=== PATIENT | male | born 1975 | race Caucasian/White ===

== ENCOUNTER 2016-12-24 13:53 | Emergency (ER) | payer BC ==
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
--- NOTE | 2016-12-24 19:19 | ED MAR SUMMARY ---
..... Medication Administration Record [facility] [address], [place] [id number] Patient: DANA STEELE Visit ID: [id number] 41y, M Weight: 111.1 kg Height/Length: 76 in BMI: 29.8 ALLERGIES: No Known Drug Allergy
--- NOTE | 2016-12-24 19:19 | ED MED RECONCILIATION SUMMARY ---
Patient: DANA STEELE Medication Reconciliation Report [facility] VisitID: [id number] [address] [place] [address] 41y, M Registration Date/Time: 12/24/2016 Weight: 111.1 kg Height/Length: 76 in. BMI: 29.8 ALLERGIES: No Known Drug Allergy The patient's Home Medications are listed below: THE FOLLOWING MEDICATIONS NEED TO BE RECONCILED: Digoxin Oral 1/2 tab in am Furosemide Oral 20 mg, daily Lipitor Oral 10 mg, 2x a day Metoprolol Tartrate Oral 50 mg, BID Spironolactone Oral 25 mg, daily Uses [facility] [place] The source(s) of the original Home Medication information: Not obtained. The following Medications were given to the patient in the Emergency Department: None. The following Medications were prescribed to the patient: Flexeril 10 mg: Take 1 orally every 8 hours as needed for muscle spasm. Dispense twenty (20). No refills. Substitution is permissible. -- Asuncion Alberts A.RHugoNHugoP. Ultram 50 mg tablets: take 1-2 orally every 6 hours as needed for pain. Dispense twenty (20). No refills. Substitution is permissible. -- Asuncion Alberts A.R.N.P.
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
--- NOTE | 2016-12-24 19:19 | ED MAR SUMMARY ---
..... Medication Administration Record [facility] [address] [place], [place] [id number] Patient: DANA STEELE Visit ID: [id number] 41y, M Weight: 111.1 kg Height/Length: 76 in BMI: 29.8 ALLERGIES: No Known Drug Allergy
--- NOTE | 2016-12-24 19:19 | ED MED RECONCILIATION SUMMARY ---
Patient: DANA STEELE Medication Reconciliation Report [facility] VisitID: [id number] [address] [place] [address] 41y, M Registration Date/Time: 12/24/2016 Weight: 111.1 kg Height/Length: 76 in. BMI: 29.8 ALLERGIES: No Known Drug Allergy The patient's Home Medications are listed below: THE FOLLOWING MEDICATIONS NEED TO BE RECONCILED: Digoxin Oral 1/2 tab in am Furosemide Oral 20 mg, daily Lipitor Oral 10 mg, 2x a day Metoprolol Tartrate Oral 50 mg, BID Spironolactone Oral 25 mg, daily Uses [facility] [place] The source(s) of the original Home Medication information: Not obtained. The following Medications were given to the patient in the Emergency Department: None. The following Medications were prescribed to the patient: Flexeril 10 mg: Take 1 orally every 8 hours as needed for muscle spasm. Dispense twenty (20). No refills. Substitution is permissible. -- Asuncion Alberts A.RHugoNHugoP. Ultram 50 mg tablets: take 1-2 orally every 6 hours as needed for pain. Dispense twenty (20). No refills. Substitution is permissible. -- Asuncion Alberts A.R.N.P.
== END 2016-12-24 16:05 | disposition home or self-care (01) ==
LOC: ED SRH 13:53
DX: S16.1XXA Strain of muscle, fascia and tendon at neck level, initial encounter (principal); S39.012A Strain of muscle, fascia and tendon of lower back, initial encounter; V53.5XXA Driver of pick-up truck or van injured in collision with car, pick-up truck or van in traffic accident, initial encounter; Y99.9 Unspecified external cause status; Y92.9 Unspecified place or not applicable; Y93.89 Activity, other specified; F17.210 Nicotine dependence, cigarettes, uncomplicated

== ENCOUNTER 2017-01-25 10:44 | Emergency (ER) | payer BC ==
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
--- NOTE | 2017-01-26 02:32 | ED ORDER SUMMARY ---
..... Patient: DANA STEELE OrderSheet [facility] VisitID: [id number] [address] [place] [address] 41y, M Registration Date/Time: 01/25/2017 ORDER SHEET Weight: 108.8 kg (stated) Allergies: No Known Drug Allergy GENERAL ORDERS: Elbow 3 or 4V Left Urgent (11:14 01/25/2017 Carole MCCARTY) (Ack 11:25 Kalyn) (11:30 Jailyn R.N.) Thoracic Spine 3V Urgent (11:01/25/2017 aCrole MCCARTY) (Ack 11:25 Kalyn) (11:30 Jailyn R.N.) MEDICATION ORDERS: IV FLUIDS: ORDER SHEET NOTES: [Electronically signed by Bentley Garrison R.N. (12:21 01/25/2017)] [Electronically signed by Gerald Mcduffie MD (16:48 01/25/2017)] [Electronically locked/signed by Bentley Garrison R.N. (12:01/25/2017)]
--- NOTE | 2017-01-26 02:32 | ED ORDER SUMMARY ---
..... Patient: DANA STEELE OrderSheet [facility] VisitID: [id number] [address] [place] [address] 41y, M Registration Date/Time: 01/25/2017 ORDER SHEET Weight: 108.8 kg (stated) Allergies: No Known Drug Allergy GENERAL ORDERS: Elbow 3 or 4V Left Urgent (11:14 01/25/2017 Carole MCCARTY) (Ack 11:25 Kalyn) (11:30 Jailyn R.N.) Thoracic Spine 3V Urgent (11:01/25/2017 Carole MCCARTY) (Ack 11:25 Kalyn) (11:30 Jailyn R.N.) MEDICATION ORDERS: IV FLUIDS: ORDER SHEET NOTES: [Electronically signed by Bentley Garrison R.N. (12:21 01/25/2017)] [Electronically signed by Gerald Mcduffie MD (16:48 01/25/2017)] [Electronically locked/signed by Bentley Garrison R.N. (12:01/25/2017)]
--- NOTE | 2017-01-26 02:35 | ED DISCHARGE INSTRUCTIONS ---
Patient: DANA STEELE General Instructions [facility] VisitID: [id number] [address] [place] [address] 41y, M Registration Date/Time: 01/25/2017 Contusion left elbow Lumbar back strain. INSTRUCTIONS Apply moist heat for 15-20 minutes three times a day for one weeks until better. No strenuous activity. Warnings: Further evaluation is necessary. Your Current Medications: CONTINUE TAKING THE FOLLOWING MEDICATIONS: Digoxin Oral : 1/2 tab in am. Furosemide Oral : 20 mg daily. Lipitor Oral : 10 mg 2x a day. Metoprolol Tartrate Oral : 50 mg BID. Spironolactone Oral : 25 mg daily. Prescription Medications: Ibuprofen 600mg tablets: take 1 tablet orally every 8 hours as needed for pain. Dispense thirty (30). No refills. Understanding of the discharge instructions verbalized by patient. Follow-up with: [facility], , , [address], , [place], [address] Follow up in one week. Call for an appointment. No strenuous activity. (Electronically signed by Gerald Mcduffie MD 01/25/2017 16:48)
--- NOTE | 2017-01-26 02:35 | ED MED RECONCILIATION SUMMARY ---
Patient: DANA STEELE Medication Reconciliation Report [facility] VisitID: [id number] [address] [place] [address] 41y, M Registration Date/Time: 01/25/2017 Weight: 108.8 kg Height/Length: 76 in. BMI: 29.2 ALLERGIES: No Known Drug Allergy The patient's Home Medications are listed below: CONTINUE TAKING THE FOLLOWING MEDICATIONS: Digoxin Oral 1/2 tab in am Furosemide Oral 20 mg, daily Lipitor Oral 10 mg, 2x a day Metoprolol Tartrate Oral 50 mg, BID Spironolactone Oral 25 mg, daily The source(s) of the original Home Medication information: patient The following Medications were given to the patient in the Emergency Department: None. The following Medications were prescribed to the patient: Ibuprofen 600mg tablets: take 1 tablet orally every 8 hours as needed for pain. Dispense thirty (30). No refills. -- Gerald Mcduffie MD
--- NOTE | 2017-01-26 02:35 | ED MED RECONCILIATION SUMMARY ---
Patient: DANA STEELE Medication Reconciliation Report [facility] VisitID: [id number] [address] [place] [address] 41y, M Registration Date/Time: 01/25/2017 Weight: 108.8 kg Height/Length: 76 in. BMI: 29.2 ALLERGIES: No Known Drug Allergy The patient's Home Medications are listed below: CONTINUE TAKING THE FOLLOWING MEDICATIONS: Digoxin Oral 1/2 tab in am Furosemide Oral 20 mg, daily Lipitor Oral 10 mg, 2x a day Metoprolol Tartrate Oral 50 mg, BID Spironolactone Oral 25 mg, daily The source(s) of the original Home Medication information: patient The following Medications were given to the patient in the Emergency Department: None. The following Medications were prescribed to the patient: Ibuprofen 600mg tablets: take 1 tablet orally every 8 hours as needed for pain. Dispense thirty (30). No refills. -- Gerald Mcduffie MD
--- NOTE | 2017-01-26 02:35 | ED DISCHARGE INSTRUCTIONS ---
Patient: DANA STEELE General Instructions [facility] VisitID: [id number] [address] [place] [address] 41y, M Registration Date/Time: 01/25/2017 Contusion left elbow Lumbar back strain. INSTRUCTIONS Apply moist heat for 15-20 minutes three times a day for one weeks until better. No strenuous activity. Warnings: Further evaluation is necessary. Your Current Medications: CONTINUE TAKING THE FOLLOWING MEDICATIONS: Digoxin Oral : 1/2 tab in am. Furosemide Oral : 20 mg daily. Lipitor Oral : 10 mg 2x a day. Metoprolol Tartrate Oral : 50 mg BID. Spironolactone Oral : 25 mg daily. Prescription Medications: Ibuprofen 600mg tablets: take 1 tablet orally every 8 hours as needed for pain. Dispense thirty (30). No refills. Understanding of the discharge instructions verbalized by patient. Follow-up with: [facility], , , [address], , [place], [address] Follow up in one week. Call for an appointment. No strenuous activity. (Electronically signed by Gerald Mcduffie MD 01/25/2017 16:48)
--- NOTE | 2017-01-26 02:35 | ED MAR SUMMARY ---
..... Medication Administration Record [facility] [address] [place] [id number] Patient: DANA STEELE Visit ID: [id number] 41y, M Weight: 108.8 kg Height/Length: 76 in BMI: 29.2 ALLERGIES: No Known Drug Allergy
--- NOTE | 2017-01-26 02:35 | ED MAR SUMMARY ---
..... Medication Administration Record [facility] [address] [place], [place] [id number] Patient: DANA STEELE Visit ID: [id number] 41y, M Weight: 108.8 kg Height/Length: 76 in BMI: 29.2 ALLERGIES: No Known Drug Allergy
== END 2017-01-25 12:18 | disposition home or self-care (01) ==
LOC: ED SRH 10:44
DX: S50.02XA Contusion of left elbow, initial encounter (principal); X58.XXXA Exposure to other specified factors, initial encounter; S39.012D Strain of muscle, fascia and tendon of lower back, subsequent encounter; Y92.9 Unspecified place or not applicable; Y93.9 Activity, unspecified; Y99.9 Unspecified external cause status; V49.9XXD Car occupant (driver) (passenger) injured in unspecified traffic accident, subsequent encounter; F17.210 Nicotine dependence, cigarettes, uncomplicated; Z79.899 Other long term (current) drug therapy